=== PATIENT | female | born 1955 | race Caucasian/White ===

== ENCOUNTER 2018-06-29 17:47 | Observation (INO) ==
[2018-06-29] MEDS ORDERED: *HR* Labetalol 20 MG/4 ML SYRINGE IVP ONE (18:01)
[2018-06-29 18:10] LABS: Hemoglobin 13.6 g/dL (11.5-15.4); Mean Corpuscular HGB Conc 34.9 g/dL (31.6-35.5); Mean Corpuscular Hemoglobin 30.6 pg (28.0-33.3); Mean Corpuscular Volume 87.8 fL (83.0-100.0); Mean Platelet Volume 9.2 fL (9.4-12.4); Platelet Count 131 K/mcL (140-400); Red Blood Count 4.44 M/mcL (3.82-4.97); Red Cell Distribution Width 12.1 % (11.5-14.5)
[2018-06-29 18:17] LABS: Prothrombin Time 11.3 Seconds (9.4-12.1)
[2018-06-29 18:20] LABS: Activated Partial Thrombo Time 28.9 Seconds (26.0-36.0)
[2018-06-29 18:30] LABS: BUN/Creatinine Ratio 31 (6-26); Blood Urea Nitrogen 23 mg/dL (8-23); Calcium 10.2 mg/dL (8.6-10.3); Carbon Dioxide 27 mEq/L (23-29); Chloride 99 mEq/L (98-107); Glucose 143 mg/dL (70-105); Osmolality,Calculated 292 (280-300); Potassium 3.5 mEq/L (3.5-5.1); Sodium 138 mEq/L (136-145); Troponin I < 0.03 ng/mL (< 0.04); eGFR For Non-African Americans > 60 (> 60)
[2018-06-29] MEDS ORDERED: Aspirin 325 MG TABLET PO ONE (18:32)
[2018-06-29] MEDS ORDERED: Isovue-370 500 ML BOTTLE IVP ONE (18:33)
--- NOTE | 2018-06-29 19:14 | Emergency Department Note ---
Disposition Clinical Impression: Hypertensive urgency, Paresthesias, Left facial numbness Disposition: Admitted As Inpatient Condition: Good Referrals: Isrrael Peralta MD [Primary Care Provider] - Time of Disposition: 19:24 Neuro HPI - General Chief Complaint: ED Neuro Symptoms/Deficit Stated Complaint: L sided numbess Time Seen by Provider: 06/29/18 17:52 Source: family Limitations: no limitations Nursing Notes Reviewed: Yes Vital Signs Reviewed: Yes - History of Present Illness HPI Narrative: 63-year-old female presented to the emergency room for numbness. She states that on Saturday evening she started having palpitations and not feeling well. States her blood pressure has been elevated. This is out of the ordinary for her. Today around 4:30 or so she started developing pain in the back of her head and neck as well as left face arm and leg numbness and tingling sensation. She states she has never had this before. She denied any vision changes. She denies tongue problems. She denies any weakness on one side versus the other. She has no other complaints at this time other than she admitted to some intermittent palpitations. - Related Data Home Medications: Home Medications Medication Instructions Recorded Confirmed FLUoxetine HCl [PROzac] 20 mg PO HS 06/29/18 06/29/18 Famciclovir 250 mg PO TID 06/29/18 06/29/18 LORazepam [Lorazepam] 2 mg PO BID PRN 06/29/18 06/29/18 Metformin HCl [Glucophage Xr] 500 mg PO QPM 06/29/18 06/29/18 Rosuvastatin Calcium [Crestor] 5 mg PO SUTH 06/29/18 06/29/18 Allergies/Adverse Reactions: Allergies Allergy/AdvReac Type Severity Reaction Status Date / Time morphine Allergy Nausea Verified 03/26/16 10:08 Penicillins Allergy Rash Verified 03/26/16 10:08 ciprofloxacin [From Cipro] AdvReac Depression Verified 03/26/16 10:08 epinephrine AdvReac See Verified 03/26/16 10:08 Comments All systems ED: reviewed and negative except as stated. Constitutional: Reports: as per HPI ENT ED: Reports: as per HPI Cardiovascular: Denies: chest pain Respiratory: Denies: cough Gastrointestinal: Denies: abdominal pain Musculoskeletal: Reports: as per HPI Integumentary: Reports: as per HPI Neurological: Reports: headache, paresthesias Psychiatric: Reports: as per HPI Past Medical History - Past Medical History Medical history: Reports: diabetes, hypertension Psychiatric history: Reports: no psych history - Social History Smoking Status: Never smoker Smokeless Tobacco Status: No Alcohol use: Reports: none Drug use: Reports: none Physical Exam - General Limitations: no limitations General appearance: alert - Head Head exam: atraumatic, normocephalic - Eye Eye exam: Present: PERRL, EOMI - ENT ENT exam: normal exam - Chest Chest inspection: Present: normal inspection - Respiratory Respiratory exam: Present: normal lung sounds bilaterally - Cardiovascular Cardiovascular exam: Present: regular rate, normal rhythm, normal heart sounds - Abdominal Exam Abdominal exam: Present: soft, Non-Tender, normal bowel sounds - Extremities Exam Extremities exam: Present: normal inspection - Back Exam Back exam: Present: normal inspection - Neurological Exam Neurological exam: Present: alert, CN II-XII intact, other (No focal motor or sensory deficits at this time. She does complain of some numbness along the left side of the face and left arm and left leg.) - Psychiatric Psychiatric exam: Present: normal affect, normal mood - Skin Skin exam: Present: warm, dry, intact Course Vital Signs Temperature 97.7 F 06/29/18 17:54 Pulse Rate 100 06/29/18 17:54 Respiratory Rate 18 06/29/18 17:54 Blood Pressure 198/84 06/29/18 17:54 O2 Sat by Pulse Oximetry 100 06/29/18 17:54 Temperature 97.7 F 06/29/18 17:54 Pulse Rate 70 06/29/18 18:33 Respiratory Rate 18 06/29/18 18:33 Blood Pressure 151/77 06/29/18 18:33 O2 Sat by Pulse Oximetry 98 06/29/18 18:14 Oxygen Delivery Oxygen Delivery Room Air Neuro Symptoms/Deficit - MDM Narrative Medical decision making narrative: We did a telemetry stroke conference with the neurologist at [facility]. We will admit the patient here. We will do a CTA of the head and neck. Patient will be given aspirin. Blood pressure control. Patient did receive labetalol which brought her blood pressure down. The neurologist was okay with the patient staying here based on the negative head CT and the patient complaints. Her left arm and left leg numbness has improved. - Medical Records Medical records reviewed: Yes I reviewed the patient's medical records. - Lab Data Lab results reviewed: Yes I reviewed the patient's lab results. Result diagrams: 06/29/18 18:01 06/29/18 18:01 Lab Results 06/29/18 06/29/18 06/29/18 Range/Units 18:01 18:01 18:01 WBC 7.7 (4.3-11.1) K/mcL RBC 4.44 (3.82-4.97) M/mcL Hgb 13.6 (11.5-15.4) g/dL Hct 39.0 (35.3-44.9) % MCV 87.8 (83.0-100.0) fL MCH 30.6 (28.0-33.3) pg MCHC 34.9 (31.6-35.5) g/dL RDW 12.1 (11.5-14.5) % Plt Count 131 L (140-400) K/mcL MPV 9.2 L (9.4-12.4) fL PT 11.3 (9.4-12.1) Seconds INR 1.0 APTT 28.9 (26.0-36.0) Seconds Sodium 138 (136-145) mEq/L Potassium 3.5 (3.5-5.1) mEq/L Chloride 99 (98-107) mEq/L Carbon Dioxide 27 (23-29) mEq/L BUN 23 (8-23) mg/dL Creatinine 0.74 (0.60-1.20) mg/dL Est GFR ( Amer) > 60 (> 60) Est GFR (Non-Af Amer) > 60 (> 60) BUN/Creatinine Ratio 31 H (6-26) Glucose 143 H (70-105) mg/dL Calculated Osmolality 292 (280-300) Calcium 10.2 (8.6-10.3) mg/dL Troponin I < 0.03 (< 0.04) ng/mL - Radiology Data Radiology results reviewed: Yes I reviewed the patient's radiology results. - EKG Data EKG attestation: Yes I reviewed and interpreted this EKG. EKG results narrative: EKG showed a rate of 78. Normal sinus rhythm. Normal axis. ME interval 143. QRS 78. QTC 439. NIH Stroke Scale - Level of Consciousness LOC: Alert - LOC Questions LOC Questions: Answers both correctly - LOC Commands LOC Commands: Performs both correctly - Best Gaze Best Gaze: Normal - Visual Visual: No visual loss - Facial Palsy Facial Palsy: Normal - Motor Arms Motor Arm-Left: No drift for 10 seconds - Motor Legs Motor Leg-Left: No drift for 5 seconds - Limb Ataxia Limb Ataxia: Absent of affected limb too weak to perform exam - Sensory Sensory: Mild to moderate loss, "not as sharp" - Best Language Best Language: No aphasia - Dysarthria Dysarthria: Normal - Extinction and Inattention Extinction and Inattention: Normal TPA Checklist - LKW: 3-4.5 hrs Add. Warnings/Precautions Patient/family understanding: The patient/family members have been counseled and understood the risk, benefit, and alternatives of treatment. Critical Care Time Critical Care Time: Yes Total Critical Care Time: 45 Attestation: Critical care time of 45 minutes spent in medical management of hypertensive urgency and neuro deficits. As well as consultation with neurology from [facility].
[2018-06-29] MEDS ORDERED: Naloxone 0.4 MG/ML INJ IVP PRN (23:06)
[2018-06-29] MEDS ORDERED: D5% in Water 1,000 ML IVC PRN (23:12)
[2018-06-29] MEDS ORDERED: Dextrose Gel 15 GM/37.5 ML TUBE PO PRN ×2 (23:12)
[2018-06-29] MEDS ORDERED: *HR* Dextrose 50 % in Water (Syg) 50 ML SYRINGE IVP PRN (23:12)
[2018-06-30] MEDS: FLUoxetine 20 MG CAPSULE PO SCH ×2 (01:18→21:44)
[2018-06-30] MEDS: FAMCICLOVIR 250 MG PO SCH ×4 (01:18→21:44)
[2018-06-30] MEDS: *HR* LORazepam 1 MG TABLET PO PRN ×2 (01:33→21:52)
--- NOTE | 2018-06-30 03:03 | Internal Med History&Physical ---
Date of Encounter: 06/29/18 Time of Encounter: 22:30 Internal Medicine - H&P: HPI Chief complaint: Hypertensive urgency Admitted From: Emergency Dept Plans for Post Hospital Care: Home History of present illness: Ms. Wilson is a 63 year old female Patient presented to the emergency room with chief complaint of numbness. She says that on Saturday evening she began having palpitations and was not feeling well. She also is noted her blood pressure is been elevated. Over the weekend her blood pressure did not improve, and she does not take anything for blood pressure. She used to take blood pressure medicine but she stopped taking them about a year ago after going to an test grader who she says cured her hype rtension and diabetes. Prior to her arrival to the emergency room she also started developing pain in the back of her head and neck and then noted left arm and face numbness. She never had symptoms like this before, so she came to the emergency room for further evaluation. In the emergency room patient's vital signs showed blood pressure 198/84. Her pulse was 100 and temperature was 97.7. A stroke alert was called and conference with neurology at [facility] was performed. Her CBC showed a platelet count of 131, she has a history of thrombocytopenia. INR was 1.0 and BMP was within normal limits. Patient's initial troponin was undetectable. A head CT was performed that showed no acute intracranial abnormality. After discussion with [facility], they recommended a CTA of the head and neck. He was also CTA head showed no flow-limiting stenosis or branch occlusion detected within the head or neck. They agreed patient could be admitted to [facility]. She was also given a dose of labetalol and aspirin was ordered but not given. She was sent to the medical floor for further management. Upon my evaluation, patient was resting comfortably in the hospital bed in no acute distress. She denied chest pain, abdominal pain, nausea, vomiting, diarrhea and constipation. She confirm the history above. She describes her neck and back of the head pain is cramping in nature. Her symptoms presented while she was not doing anything strenuous. She does take multiple supplements and vitamins, and sees an test grader in [place]. She has a past medical history of diabetes, depression, anxiety, hyperlipidemia, genital herpes and thrombocytopenia. She also has obstructive sleep apnea and uses a CPAP machine. She states that her mother and father both had strokes in the past and her father also had a heart attack. She notes a history of undergoing cardiac catheterizations though those records are not available at this time. She has a necklace stating that she is a DNR/DNI. During nurse's initial questioning, she was found to have some suicidal ideation, though she does not have a plan. She follows with a psychiatrist and a psychologist. Past Med Surg Social Fam HX - Past Medical History Medical history: diabetes, hypertension Additional medical history: obstructive sleep apnea, high triglycerides Psychiatric history: anxiety, depression, panic disorder - Past Surgical History Surgical History: - Social History Smoking Status: Former smoker Smokeless Tobacco Status: No Alcohol use: none Drug use: none - Family History Father Adopted: [place]: Sotero Meneses Family Member Ethnicity: Non- Living Status: Age at : 77 Cause of : Lung cancer Hx Family Cardiac Disorders: Yes (heart attack, hyperlipidemia) Hx Family Cancer: Yes (lung cancer) Hx Family Musculoskeletal Disorders: Yes (degenerative disc disease) Hx Family Neurologic Disorders: Yes (stroke) Mother Adopted: [place]: Brittany Meneses Family Member Ethnicity: Non- Living Status: Age at : 82 Cause of : Pneumonia Hx Family Cardiac Disorders: Yes (materal grandmother angina; mother carotid artery blockage) Hx Family GI Disorders: Yes (uncle - non alcoholic cirrhosis) Hx Family Neurologic Disorders: Yes (stroke, uncle had a brain aneurysm) Internal Medicine - H&P: Meds FLUoxetine HCl [PROzac] 20 mg PO HS 06/29/18 [History] Famciclovir 250 mg PO TID 06/29/18 [History] LORazepam [Lorazepam] 2 mg PO BID PRN 06/29/18 [History] Metformin HCl [Glucophage Xr] 500 mg PO QPM 06/29/18 [History] Rosuvastatin Calcium [Crestor] 5 mg PO SUTH 06/29/18 [History] Allergy/AdvReac Type Severity Reaction Status Date / Time lamotrigine [From Lamictal] Allergy Rash Verified 06/29/18 23:50 morphine Allergy Nausea Verified 03/26/16 10:08 oxcarbazepine Allergy Seizure Verified 06/29/18 23:50 [From Trileptal] Penicillins Allergy Rash Verified 03/26/16 10:08 ciprofloxacin [From Cipro] AdvReac Depression Verified 03/26/16 10:08 epinephrine AdvReac See Verified 03/26/16 10:08 Comments All Systems PM: A 10-system review of systems was performed and is negative for pertinent findings except as documented above in the HPI. - Constitutional Vitals: Temp Pulse Resp BP Pulse Ox 98.3 F 66 16 165/74 96 06/30/18 01:07 06/30/18 01:07 06/30/18 01:07 06/30/18 01:07 06/29/18 22:12 General appearance: Present: cooperative, A&O X 3, pleasant, no acute distress, answers questions appropriately Exam: - - Head Head exam: Present: normal inspection - Eye Eye exam: Present: EOMI, normal appearance - Respiratory Respiratory exam: Present: CTAB. Absent: rales, respiratory distress, rhonchi, wheezes - Cardiovascular Cardiovascular exam: Present: RRR. Absent: diastolic murmur, systolic murmur - GI/Abdominal GI/Abdominal exam: Present: normal bowel sounds, soft. Absent: tenderness - Extremities Exam Extremities exam: Present: full ROM, warm, radial pulses palpable and symmetrical. Absent: calf tenderness, pedal edema, tenderness - Neurological Exam Neurological exam: Present: alert, oriented X3, strengths equal and symetr throughout. Absent: altered, CN II-XII intact, motor sensory deficit, no focal deficits (While), pronater drift, facial droop, speech deficit Additional comments: Strength equal and symmetrical bilaterally. Some numbness to the left side of the face compared to right - Skin Skin exam: Present: dry, normal color, warm Internal Med - H&P Results - Labs CBC & Chem 7: 06/29/18 18:01 06/29/18 18:01 Labs: Short CBC 06/29/18 Range/Units 18:01 WBC 7.7 (4.3-11.1) K/mcL Hgb 13.6 (11.5-15.4) g/dL Hct 39.0 (35.3-44.9) % Plt Count 131 L (140-400) K/mcL BMP 06/29/18 18:01 Sodium 138 Potassium 3.5 Chloride 99 Carbon Dioxide 27 BUN 23 Creatinine 0.74 Glucose 143 H Calcium 10.2 Cardiac Enzymes 06/29/18 Range/Units 18:01 Troponin I < 0.03 (< 0.04) ng/mL - Impressions ITS Impressions Head CT 06/29/18 17:59 IMPRESSION: No acute intracranial abnormality. Findings were discussed with Tyron Leon at 6:19 pm on 06/29/2018. D/ / Dank Jean MD / Dank Jean MD Interpreting Provider: Dank Jean MD Head CTA 06/29/18 18:33 IMPRESSION: No flow limiting stenosis or branch occlusion detected within the head or neck. D/ / Stephen Cheng MD / Stephen Cheng MD Interpreting Provider: Stephen Cheng MD Neck CTA 06/29/18 18:33 IMPRESSION: No flow limiting stenosis or branch occlusion detected within the head or neck. D/ / Stephen Cheng MD / Stephen Cheng MD Interpreting Provider: Stephen Cheng MD - Assessment and Plan (1) Hypertensive urgency Current Visit: Yes Status: Acute Assessment and plan: Improved, in the emergency room she received 1 dose of 10 mg IV labetalol. Her blood pressure could be related to the numbness and tingling that she is experiencing in her hand and face. Her numbness has improved in her hand but she still has some numbness on the left side of her face. CT head was negative. Blood pressure at time of evaluation demonstrated a systolic of 160s. Continue to monitor we will hold off on additional blood pressure medicines, allowing for permissive hypertension, due to the possibility of TIA. (2) Left facial numbness Current Visit: Yes Status: Acute Assessment and plan: Could be secondary to hypertension, or TIA. Initial head CT negative for acute intracranial abnormality. CT angiogram of head and neck also negative. No facial droop on exam, only sensation changes. MRI in the morning Echocardiogram in the morning Carotid Dopplers in the morning Continue cardiac monitoring Patient passed dysphasia screen Consider neurology consult Consider physical therapy and occupational therapy consult if patient's neuro status declines. (3) Paresthesias Current Visit: Yes Status: Acute Assessment and plan: Improved, and as per patient essentially resolved. Her only remaining symptoms are left-sided facial numbness. Management as above (4) Suicidal ideation Current Visit: Yes Status: Acute Assessment and plan: Patient stated to the nurse that she feels hopeless ever since her 5 years ago. She has frequent mood swings and has thoughts of killing herself as well as wishing she was . She says that she would not carry out these thoughts due to her lutheran beliefs. She currently sees psychiatry and psychologist. Patient sitter Consider psychiatry consult (5) Anxiety Current Visit: Yes Status: Acute Assessment and plan: Continue home meds (6) Genital herpes Current Visit: Yes Status: Acute Assessment and plan: Continue home meds Qualifiers: Herpes simplex infection site: unspecified Qualified Code(s): A60.00 - Herpesviral infection of urogenital system, unspecified (7) Thrombocytopenia Current Visit: Yes Status: Acute Assessment and plan: Continue to monitor. No active bleeding. Appears to be chronic, last platelet level was 126 two years ago. SCDs for DVT prophylaxis (8) Diabetes Current Visit: Yes Status: Acute Assessment and plan: Patient is not an insulin dependent diabetic Monitor sugars ACHS Diabetic/cardiac diet Low dose insulin sliding scale as needed Hold home meds. Qualifiers: Diabetes mellitus type: type 2 Diabetes mellitus prison insulin use: without winder operator use Diabetes mellitus complication status: without complica tion Qualified Code(s): E11.9 - Type 2 diabetes mellitus without complications (9) Obstructive sleep apnea Current Visit: Yes Status: Acute Assessment and plan: Continue CPAP at night (10) DVT prophylaxis Current Visit: Yes Status: Acute Assessment and plan: SCDs secondary to thrombocytopenia - Time Spent With Patient Total time spent is greater than 50% in coordination of care (as documented) at patient's floor/unit and/or counseling patient: Greater than 35 minutes
[2018-06-30 05:34] LABS: Hematocrit 36.6 % (35.3-44.9); Hemoglobin 12.5 g/dL (11.5-15.4); Mean Corpuscular HGB Conc 34.2 g/dL (31.6-35.5); Mean Corpuscular Hemoglobin 30.5 pg (28.0-33.3); Mean Corpuscular Volume 89.3 fL (83.0-100.0); Mean Platelet Volume 9.7 fL (9.4-12.4); Platelet Count 108 K/mcL (140-400); Red Cell Distribution Width 12.2 % (11.5-14.5)
[2018-06-30 05:55] LABS: BUN/Creatinine Ratio 29 (6-26); Blood Urea Nitrogen 20 mg/dL (8-23); Calcium 9.7 mg/dL (8.6-10.3); Carbon Dioxide 27 mEq/L (23-29); Chloride 102 mEq/L (98-107); Glucose 138 mg/dL (70-105); Osmolality,Calculated 289 (280-300); Sodium 137 mEq/L (136-145); eGFR For Non-African Americans > 60 (> 60)
[2018-06-30] MEDS: Insulin LISPRO 300 UNITS/3 ML VIAL SQ SCH ×3 (08:44→16:37)
--- NOTE | 2018-06-30 10:04 | Neurology - Consult Note ---
<Goldy Gomez J - Last Filed: 06/30/18 15:20> Date of Encounter: 06/30/18 Time of Encounter: 09:57 Assessment and Plan (1) Hypertensive urgency Current Visit: Yes Status: Acute Treatment per primary team (2) Paresthesias Current Visit: Yes Status: Acute Presents with hypertensive urgency and left-sided paresthesias located to the left perioral region, left face and left arm. No prior history of TIA or CVA. No history of CAD. Risk factors include HTN, HLD, DM. Admitted for TIA versus CVA rule out. Clinically, the patient is neurologically intact with no focal or lateralizing deficits. She is complaining of a left-sided headache which she has had intermittently since this Saturday. She denies any prior history of headaches or migraines. HTN urgency on admission; likely contributing to h/a and may have been contributing to neuro sx. In regards to the paresthesias, it is unclear at this time whether or these are caused by an acute neurovascular event. Therefore we will continue to r/o CVA. By the time of my assessment her sx have abated. I discussed with patient the importance of medication compliance, lifestyle modifications, risk factor modifications and the benefits to weight loss. I further discussed today's plan of care as mentioned below. Also, it should be noted the patient presented with suicidal ideation and has a history of anxiety and depression. During my exam the patient appears to be very anxious and admits to multiple recent life stressors and a recent exacerbation of anxiety. PLAN: 81 mg aspirin daily Continue statin medication MRI brain pending completion Carotid duplex pending completion Echocardiogram pending completion Continue with frequent neurologic assessments per stroke protocol Continue with NIHSS per protocol Continue to monitor on telemetry Psych seeing in consultation for SI; recommendations appreciated Continuous 1:1 sitter PRN Ibuprofen for h/a Recommend anti-HTN management; again, discussed medication compliance and HTN control Tight glycemic control History of Present Illness Chief complaint: left facial and arm parasthesias HPI: Ms. Wilson is a 63 year old female with a PMH of anxiety and depression, genital herpes, HLD, HTN, and DM who presents to [facility] with a concern of left facial and left arm numbness and tingling and hypertensive urgency with SBP in the 190s. The patient reports that on Saturday she began to notice blood pressure elevation and a posterior headache. These symptoms persisted from Saturday to yesterday evening when she began to experience left sided facial paresthesias as well as left arm paresthesias and some perioral numbness and tingling. She denies any aggravating or alleviating factors, denies any visual changes, speech difficulty, dysarthria, dysphagia, unilateral weakness, shor tness of breath or chest pain. She admits to tachycardia, palpitations and the above-mentioned paresthesias. Further, she mentions a history of anxiety and notes that she has many life stressors which have been worsened recently and notes that she is more anxious than normal. CT of the head in the ED was negative for an acute intracranial abnormality. The [facility] telemetry stroke center did not recommend TPA but recommended CTA of the head and neck which does not appear to reveal any branch occlusion or flow-limiting stenosis in the head or neck. Currently, she is denying any paresthesias. Her main complaint at this time is a left-sided headache. Per review of the patient's vital signs it appears that her blood pressure has improved. The CBC and chemistry both appear within range. Of note in the history of anxiety and depression and the fact that she does appear anxious at this time the patient also mentions some suicidal ideation on admission. She does acknowledge this this morning. Neurology will continue to follow to workup acute CVA; patient should also have a psych eval while inpatient and a one-to-one sitter present until further evaluation has been completed. Past Med Surg Social Fam HX - Past Medical History Medical history: diabetes, hypertension Additional medical history: obstructive sleep apnea, high triglycerides Psychiatric history: anxiety, depression, panic disorder - Past Surgical History Surgical History: - Social History Smoking Status: Former smoker Smokeless Tobacco Status: No Alcohol use: none Drug use: none - Family History Father Adopted: [place]: Sotero Meneses Family Member Ethnicity: Non- Living Status: Age at : 77 Cause of : Lung cancer Hx Family Cardiac Disorders: Yes (heart attack, hyperlipidemia) Hx Family Cancer: Yes (lung cancer) Hx Family Musculoskeletal Disorders: Yes (degenerative disc disease) Hx Family Neurologic Disorders: Yes (stroke) Mother Adopted: [place]: Brittany Meneses Family Member Ethnicity: Non- Living Status: Age at : 82 Cause of : Pneumonia Hx Family Cardiac Disorders: Yes (materal grandmother angina; mother carotid artery blockage) Hx Family GI Disorders: Yes (uncle - non alcoholic cirrhosis) Hx Family Neurologic Disorders: Yes (stroke, uncle had a brain aneurysm) Medications and Allergies FLUoxetine HCl [PROzac] 20 mg PO HS 06/29/18 [History] Metformin HCl [Glucophage Xr] 500 mg PO QPM 06/29/18 [History] RX: Famciclovir 250 mg PO TID 06/29/18 [History] RX: LORazepam [Lorazepam] 2 mg PO BID PRN 06/29/18 [History] Rosuvastatin Calcium [Crestor] 5 mg PO SUTH 06/29/18 [History] Allergy/AdvReac Type Severity Reaction Status Date / Time lamotrigine [From Lamictal] Allergy Rash Verified 06/29/18 23:50 morphine Allergy Nausea Verified 03/26/16 10:08 oxcarbazepine Allergy Seizure Verified 06/29/18 23:50 [From Trileptal] Penicillins Allergy Rash Verified 03/26/16 10:08 ciprofloxacin [From Cipro] AdvReac Depression Verified 03/26/16 10:08 epinephrine AdvReac See Verified 03/26/16 10:08 Comments All Systems: The remainder of the systems were reviewed and are negative Review of Systems: REVIEW OF SYSTEMS GENERAL: Negative for any nausea, vomiting, fevers, chills, or weight loss, fatigue, NEUROLOGIC: Negative for any blurry vision, blind spots, double vision, facial asymmetry, dysphagia, dysarthria, hemiparesis, vertigo, ataxia, unilateral weakness speech or language dysfunction< balance changes Positive; left perioral paresthesias, left facial and left arm paresthesias PSYCH: Positive for anxiety and depression; admits to recent life stressors and worsening anxiety. Also admitting to suicidal ideation. HEENT: Negative for any head trauma, neck trauma, neck stiffness, photophobia, phonophobia CARDIAC: Negative for any chest pain, dyspnea on exertion, peripheral edema. A dmits to palpitations, tachycardia and HTN. PULMONARY: Negative for any shortness of breath GASTROINTESTINAL: Negative for any abdominal pain, nausea, vomiting. Admits to chronic intermittent diarrhea secondary to metformin use. GENITOURINARY: Negative for any dysuria, incontinence. ENDOCRINE: Thyroid trouble, heat/cold intolerance, excessive sweating, thirst, hunger MUSCULOSKELETAL: Negative loss of strength Physical Examination - Vital Signs Vital Signs: Initial Vital Signs Temp Pulse Resp BP Pulse Ox 97.7 F 100 18 198/84 100 06/29/18 17:54 06/29/18 17:54 06/29/18 17:54 06/29/18 17:54 06/29/18 17:54 - Exam Exam: Examination: General Examination: *CONSTITUTIONAL: Alert and oriented x3, no acute distress *GENERAL APPEARANCE OF PATIENT obese elderly female, overall appears healthy and well groomed *EYES: pupils equal, round, reactive to light and accommodation, conjunctiva clear *CARDIOVASCULAR RRR, S1, S2, +1 murmur at apex and left sternal border, no rubs, or gallops, no peripheral edema, distal temperature normal, 2+ radial and dorsalis pedis pulses. Defer to vital signs Musculoskeletal: *GAIT AND STATION normal, with normal Romberg testing, no abnormalities such as broad base gait or spasticity, gait was smooth, smooth transition with pivot *ASSESSMENT OF MUSCLE STRENGTH IN THE UPPER AND LOWER EXTREMITIES bilateral deltoid, bicep, tricep, principal programmer strength, hip flexors ,anterior tibialis, dorsoflexion of the foot 5/5 *MUSCLE TONE IN THE UPPER AND LOWER EXTREMITIES normal. No abnormal movements, fasciculations or atrophy identified. Neurological: *ORIENTATION to person, situation, time and place *RECURRENT AND REMOTE MEMORY intact *ATTENTION AND CONCENTRATION are normal *LANGUAGE FUNCTION no significant aphasia or dysarthia was noted. *FUND OF KNOWLEDGE aware of current events, past history, vocabulary *MENTAL attention span and concentration normal. *CN II optic fundi were normal, no papilledema noted. *CN III,IV, PERRLA extraocular eye movements were full, no nystagmus and no ptosis noted. *CN V shows normal sensation and jaw opens symmetrically. *CN VII shows normal facial movement symmetrically, upper and lower bilaterally. *CN VIII shows no significant hearing loss on exam *CN IX,,X palate elevated symmetrically *CN XI normal strength in the sternocleidomastoid muscles, symmetrical shoulder shrugging. *CN XII tongue protruded in the midline, with normal strength and movement. *SENSORY EXAMINATION light touch intact *REFLEXES: deep tendon reflexes were normal and symmetrical , grade 3/4 diffusely, no pathological reflexes were noted. *CEREBELLAR TESTING normal finger to nose, heel/knee/johnson *PAIN LEVEL 0 *PSYCHIATRIC: Anxious appearing Results - Laboratory Findings CBC and BMP: 06/30/18 05:14 06/30/18 05:14 Abnormal lab findings: Abnormal lab results Plt Count 108 K/mcL (140-400) L 06/30/18 05:14 BUN/Creatinine Ratio 29 (6-26) H 06/30/18 05:14 Glucose 138 mg/dL (70-105) H 06/30/18 05:14 POC Glucose 116 mg/dL (70-99) H 06/29/18 22:18 - Diagnostic Findings EKG: report reviewed, image reviewed (Normal sinus rhythm with HR of 78) Additional findings: CT/CT angio neck IMPRESSION: No flow limiting stenosis or branch occlusion detected within the head or neck. CT/CT stroke alert head wo con IMPRESSION: No acute intracranial abnormality. Consult Discharge Plan - Plan Referrals: Isrrael Peralta MD [Primary Care Provider] - <Miguel Enrique - Last Filed: 06/30/18 15:34> Date of Encounter: 06/30/18 Assessment and Plan (1) Hypertensive urgency Current Visit: Yes Status: Acute (2) Paresthesias Current Visit: Yes Status: Acute I have personally performed a [id number] assessment of the patient and have reviewed the PA/BUSINESS SOLUTIONS DIRECTOR note. My impressions are as follows: I did review the chart and its entirety I did review the MRI scan of the brain which was completely normal. CTA scan of the head and neck was unrevealing. Her blood pressure has now normalized. The full interpretation of the carotid Doppler study and the echocardiogram are yet pending. I agree that the presentation is likely due to the different factors including anxiety, perhaps TIA as a result of her significantly elevated blood pressure. I did stress the importance of medical compliance as well as following up with her primary care provider for ongoing management of her stroke risk factors. I agree with the recommendations as stated above. We will reassess her tomorrow. History of Present Illness HPI: I have personally performed a [id number] assessment of the patient. The chart was reviewed, I did review the results of the MRI scan of the brain as well as the CTA of the head and neck. The case was discussed with the COTTON DISPATCHER. I agree with his documentation as stated above. Patient is currently undergoing carotid Doppler study. She is alert and oriented and under no acute distress at this time. Paresthesias of the left mouth and face as well as the left upper extremity have completely resolved. All Systems: The remainder of the systems were reviewed and are negative Review of Systems: The balance of the systems review was all negative. Physical Examination - Vital Signs Vital Signs: Initial Vital Signs Temp Pulse Resp BP Pulse Ox 97.7 F 100 18 198/84 100 06/29/18 17:54 06/29/18 17:54 06/29/18 17:54 06/29/18 17:54 06/29/18 17:54 - Exam Exam: I did not assess gait at the time of my assessment is a patient was lying on the bed for testing. Otherwise I completely agree with the neurologic examination as documented above. Results - Laboratory Findings CBC and BMP: 06/30/18 05:14 06/30/18 05:14 Abnormal lab findings: Abnormal lab results Plt Count 108 K/mcL (140-400) L 06/30/18 05:14 BUN/Creatinine Ratio 29 (6-26) H 06/30/18 05:14 Glucose 138 mg/dL (70-105) H 06/30/18 05:14 POC Glucose 116 mg/dL (70-99) H 06/29/18 22:18
[2018-06-30] MEDS ORDERED: Ibuprofen 400 MG TABLET PO PRN (10:18)
[2018-06-30] MEDS: Aspirin 81 MG TAB.CHEW PO SCH (12:04)
--- NOTE | 2018-06-30 12:36 | Internal Med Progress Note ---
Hospitalist Progress Note - Encounter Date of Encounter: 06/30/18 Time of Encounter: 10:46 - Subjective Interval History: Pt seen and examined with sitter and family present at bedside. Pt states she feels better compared to previous day. Reports complete resolution of her left sided numbness, but does report of frontal headache. Denies any dizziness, or lightheadedness at this time. Pt continues to express feelings of hopelessness and depression, reports of having suicidal ideation but no intent or plan. Ten point ROS negative except as listed above - Exam Vitals: Temp Pulse Resp BP Pulse Ox 98.5 F 65 16 115/48 100 06/30/18 11:25 06/30/18 11:25 06/30/18 11:25 06/30/18 11:25 06/30/18 11:25 Exam: General: No acute distress, AAO x 3, obese HEENT: EOMI, NC/AT, no scleral icterus Respiratory: Clear to auscultate bilaterally, no wheezing, no rales Cardiovascular: Regular, Rate, Rhythm, No murmurs GI: Soft, Non tender, non distended, normal bowel sounds Ext: No edema, no tenderness, positive pulses Neuro: AAO x 3, no focal deficits - Summary of Assessment and Plan Summary of Assessment and Plan: Assessment/Plan: (1) Hypertensive urgency Current Visit: Yes Status: Acute Assessment and plan: Resolved extensive medication compliance counseling provided BP within acceptable range at this time will continue to closely monitor we will hold off on additional blood pressure medicines, allowing for permissive hypertension, due to the possibility of TIA. (2) Left facial numbness Current Visit: Yes Status: Acute Assessment and plan: Could be secondary to hypertension, or TIA. Initial head CT negative for acute intracranial abnormality. CT angiogram of head and neck also negative. Initial presentation findings resolved at this time Neurology input appreciated MRI, 2D echo, carotid doppler pending will obtain PT/OT evaluation (3) Paresthesias Current Visit: Yes Status: Acute Assessment and plan: resolved at this time (4) Suicidal ideation Current Visit: Yes Status: Acute Assessment and plan: Will continue bedside sitter at this time psychiatry evaluation has been requested (5) Anxiety Current Visit: Yes Status: Acute Assessment and plan: Continue home meds (6) Genital herpes Current Visit: Yes Status: Acute Assessment and plan: Continue home meds Qualifiers: Herpes simplex infection site: unspecified Qualified Code(s): A60.00 - Herpesviral infection of urogenital system, unspecified (7) Thrombocytopenia Current Visit: Yes Status: chronic Assessment and plan: Continue to monitor. No active bleeding. SCDs for DVT prophylaxis (8) Diabetes Current Visit: Yes Status: Acute Assessment and plan: Patient is not an insulin dependent diabetic sliding scale insulin algorithm as needed monitor fingerstick and blood glucose ADA diet Qualifiers: Diabetes mellitus type: type 2 Diabetes mellitus aba therapist insulin use: without care home use Diabetes mellitus complication status: without complication Qualified Code(s): E11.9 - Type 2 diabetes mellitus without complications (9) Obstructive sleep apnea Current Visit: Yes Status: Acute Assessment and plan: Continue CPAP at night (10) DVT prophylaxis Current Visit: Yes Status: Acute Assessment and plan: SCDs secondary to thrombocytopenia (11) Headache will initiate Fioricet prn as pt reports of persistent headache despite taking tylenol - Time Spent with Patient Total time spent is greater than 50% in coordination of care (as documented) at patient's floor/unit and/or counseling patient: Plan of Care Discussed with: patient (patient/RN/Family) Internal Medicine: Result - Labs CBC & Chem 7: 06/30/18 05:14 06/30/18 05:14 Labs: Short CBC 06/29/18 06/30/18 Range/Units 18:01 05:14 WBC 7.7 6.3 (4.3-11.1) K/mcL Hgb 13.6 12.5 (11.5-15.4) g/dL Hct 39.0 36.6 (35.3-44.9) % Plt Count 131 L 108 L (140-400) K/mcL BMP 06/29/18 06/30/18 18:01 05:14 Sodium 138 137 Potassium 3.5 4.0 Chloride 99 102 Carbon Dioxide 27 27 BUN 23 20 Creatinine 0.74 0.68 Glucose 143 H 138 H Calcium 10.2 9.7 Cardiac Enzymes 06/29/18 Range/Units 18:01 Troponin I < 0.03 (< 0.04) ng/mL - ABG Interpretation ABG results: PT/INR, D-dimer PT 11.3 Seconds (9.4-12.1) 06/29/18 18:01 - Impressions Impressions Head CT 06/29/18 17:59 IMPRESSION: No acute intracranial abnormality. Findings were discussed with Tyron Leon at 6:19 pm on 06/29/2018. D/ / Dank Jean MD / Dank Jean MD Interpreting Provider: Dank Jean MD Head CTA 06/29/18 18:33 IMPRESSION: No flow limiting stenosis or branch occlusion detected within the head or neck. D/ / Stephen Cheng MD / Stephen Cheng MD Interpreting Provider: Stephen Cheng MD Neck CTA 06/29/18 18:33 IMPRESSION: No flow limiting stenosis or branch occlusion detected within the head or neck. D/ / Stephen Cheng MD / Stephen Cheng MD Interpreting Provider: Stephen Cheng MD Consult Discharge Plan - Plan Referrals: Isrrael Peralta MD [Primary Care Provider] -
--- NOTE | 2018-06-30 15:16 | Consult Note ---
Date of Encounter: 06/30/18 Time of Encounter: 13:00 Assessment & Recommendation (1) Other bipolar disorder Current visit: Yes Status: Acute Assessment & Recommendation: -Although the patient is having suicidal ideation, she denies plan or intent and has strong protective factors. As such, she is not seen to be at high risk for suicide at this time. -With a current history, it appears that there may be a bipolar element to the patient's illness. Patient has been started on medications for bipolar disorder in the past, though side effects caused medications to be discontinued. As such, a lower potency and safer medication is desired. As such, recommend starting ziprasidone 20 mg by mouth daily daily at bedtime with food. Risks, benefits, side effects, and alternatives to this medication were discussed with the patient, including but not limited to hypertension. -Recommend continuing fluoxetine 20 mg by mouth daily at bedtime for mood -Recommend continuing lorazepam 2 mg by mouth twice a day when necessary for anxiety -Patient reports that she has psychiatric and counseling services outpatient already -Recommend grief counseling patient is acceptable to it -Recommend discontinuing one-to-one sitter -Will continue to follow remotely throughout visit. Please let us know if you have any additional questions. History of Present Illness Patient: new to practice Requesting Physician: German Billingsley MD Reason for consult: Suicidal ideation History of present illness: Ms. Wilson is a 63 year old female with a past psychiatric history of depression, anxiety, possible bipolar disorder, and possible borderline personality disorder who was admitted on 06/29/2018 for left-sided numbness in who was consult to psychiatry today for suicidal ideation. Patient was admitted due to pain in the back of her head as well as left face, arm, and leg numbness. CT of the head and CTA of the head and neck were all negative. During her admission, she did report suicidal ideation but without plan. There was concern for her safety; as such, psychiatry was consulted. Patient reports that she is "not been too good." She reports increased depression and "a good bit" of anxiety. She states that she has had depression and anxiety since she was a child. She reports exacerbating factor of her being for 5 years. She reports that she is now "hopeless" and she now has a realization that although she had for the future are now gone with her 's . She states that she cannot see a life with new hopes. She denies plan or intent as how to harm herself, stating that it is not serious about ending her suicidal ideation. She reports protective factors of her sister and her son. She denies having access to a working farm, stating that she does have an antique gun but that it does not work. She reports a past history of hypomanic episodes. She states that her last hypomanic episode was in April of this year for 6 weeks. She reports that she was "up and working every day," cleaning her house and basement. She reports that during this time, she was sleeping from 9 PM to 7 AM. However, she states that she usually gets 14 hours of sleep a day during her depressed ages. Her sister, who is in the room, states that she also gets "mean and critical" during these times of hypomania. Patient reports that she will have hypomanic episodes about 4 times a year. In addition, she reports that she has "rapid" cycles in between, stating that she will be hypomanic for 1-2 days at a time. She reports past psychiatric diagnoses of PTSD, obsessive-compulsive disorder, depression, anxiety, possible bipolar disorder, and possible borderline personality disord er. She reports that she was in dialectical behavioral therapy for 4 years, which she responded well to. She reports "broken" sleep currently with "terrible dreams." She denies issues of appetite. She denies side effects to medications. However, she reports a significant history of side effects to medications and is very cautious to start a new medication. She denies current SI, HI, AH, and VH. CC: German Billingsley MD Past Med Surg Social Fam HX - Past Medical History Medical history: diabetes, hypertension - Past Psychiatric History Psychiatric history: Reports: anxiety, bipolar, depression, PTSD, other (Borderline personality disorder) Family psychiatric history: Unknown Family History of Suicide: Unknown - Past Surgical History Surgical History: - Social History Smoking Status: Former smoker Smokeless Tobacco Status: No Alcohol use: none Drug use: none Occupational status: other Current living situation: Other - Family History Father Adopted: [place]: Sotero Meneses Family Member Ethnicity: Non- Living Status: Age at : 77 Cause of : Lung cancer Hx Family Cardiac Disorders: Yes (heart attack, hyperlipidemia) Hx Family Cancer: Yes (lung cancer) Hx Family Musculoskeletal Disorders: Yes (degenerative disc disease) Hx Family Neurologic Disorders: Yes (stroke) Mother Adopted: [place]: Brittany Meneses Family Member Ethnicity: Non- Living Status: Age at : 82 Cause of : Pneumonia Hx Family Cardiac Disorders: Yes (materal grandmother angina; mother carotid artery blockage) Hx Family GI Disorders: Yes (uncle - non alcoholic cirrhosis) Hx Family Neurologic Disorders: Yes (stroke, uncle had a brain aneurysm) Medications & Allergies FLUoxetine HCl [PROzac] 20 mg PO HS 06/29/18 [History] Famciclovir 250 mg PO TID 06/29/18 [History] LORazepam [Lorazepam] 2 mg PO BID PRN 06/29/18 [History] Metformin HCl [Glucophage Xr] 500 mg PO QPM 06/29/18 [History] Rosuvastatin Calcium [Crestor] 5 mg PO SUTH 06/29/18 [History] Allergy/AdvReac Type Severity Reaction Status Date / Time lamotrigine [From Lamictal] Allergy Rash Verified 06/29/18 23:50 morphine Allergy Nausea Verified 03/26/16 10:08 oxcarbazepine Allergy Seizure Verified 06/29/18 23:50 [From Trileptal] Penicillins Allergy Rash Verified 03/26/16 10:08 ciprofloxacin [From Cipro] AdvReac Depression Verified 03/26/16 10:08 epinephrine AdvReac See Verified 03/26/16 10:08 Comments Review of Systems Neurological: Reports: numbness (Left-sided, now resolved). Denies: confusion Psychiatric: Reports: depression, anxiety, abnormal sleep pattern, anhedonia, hopelessness. Denies: suicidal ideation, change in appetite, homicidal ideation, auditory hallucinations, visual hallucinations Psychiatry Exam - Constitutional Vitals: Temp Pulse Resp BP Pulse Ox 98.5 F 65 16 115/48 100 06/30/18 11:25 06/30/18 11:25 06/30/18 11:25 06/30/18 11:25 06/30/18 11:25 General appearance: age & developmentally appropriate, well-groomed, well- nourished, obese - Musculoskeletal Gait: other (Not assessed) Station: relaxed Strength & Tone: normal for patient (Grossly) - Psychiatric Patient Orientation: Yes Person, Yes Time, Yes Place, Yes Circumstance Level of alertness: Alert, Follows commands Behavior: calm, cooperative Psychomotor activity: Normal Eye Contact: Maintains Eye Contact Mood Description: Depressed Patient description of mood: "Not been too good" Affect description: congruent with mood, full range Speech Volume: Normal Speech pattern: normal rate, normal rhythm, normal tone, fluent, spontaneous, appropriate, clear, coherent Language & Vocabulary: consistent with education Thought Process: Logical, Linear, Goal Oriented Thought Content: No Suicidal ideation, No Homicidal ideation, No Overt delusions Perceptual Disturbances: No Reacting to internal stimuli, No Auditory hallucinations, No Visual hallucinations Attention Span Ability: Capable of Focused Attention Memory Description: Grossly Intact Patient Reliability: Reliable Historian Fund of knowledge: Yes abstraction ability, Yes aware of current events Intelligence Estimate: Average Judgment: Limited Insight: Partial Results - Drug Levels and Toxicology Drug Levels and Toxicology: None new this a.m. - Labs Labs: Laboratory Last Values WBC 6.3 K/mcL (4.3-11.1) 06/30/18 05:14 RBC 4.10 M/mcL (3.82-4.97) 06/30/18 05:14 Hgb 12.5 g/dL (11.5-15.4) 06/30/18 05:14 Hct 36.6 % (35.3-44.9) 06/30/18 05:14 MCV 89.3 fL (83.0-100.0) 06/30/18 05:14 MCH 30.5 pg (28.0-33.3) 06/30/18 05:14 MCHC 34.2 g/dL (31.6-35.5) 06/30/18 05:14 RDW 12.2 % (11.5-14.5) 06/30/18 05:14 Plt Count 108 K/mcL (140-400) L 06/30/18 05:14 MPV 9.7 fL (9.4-12.4) 06/30/18 05:14 PT 11.3 Seconds (9.4-12.1) 06/29/18 18:01 INR 1.0 06/29/18 18:01 APTT 28.9 Seconds (26.0-36.0) 06/29/18 18:01 Sodium 137 mEq/L (136-145) 06/30/18 05:14 Potassium 4.0 mEq/L (3.5-5.1) 06/30/18 05:14 Chloride 102 mEq/L (98-107) 06/30/18 05:14 Carbon Dioxide 27 mEq/L (23-29) 06/30/18 05:14 BUN 20 mg/dL (8-23) 06/30/18 05:14 Creatinine 0.68 mg/dL (0.60-1.20) 06/30/18 05:14 Est GFR ( Amer) > 60 (> 60) 06/30/18 05:14 Est GFR (Non-Af Amer) > 60 (> 60) 06/30/18 05:14 BUN/Creatinine Ratio 29 (6-26) H 06/30/18 05:14 Glucose 138 mg/dL (70-105) H 06/30/18 05:14 POC Glucose 116 mg/dL (70-99) H 06/29/18 22:18 Calculated Osmolality 289 (280-300) 06/30/18 05:14 Calcium 9.7 mg/dL (8.6-10.3) 06/30/18 05:14 Troponin I < 0.03 ng/mL (< 0.04) 06/29/18 18:01 Vitamin B12 449 pg/mL (250-1100) 06/30/18 11:35 - Impressions Impressions Head CT 06/29/18 17:59 IMPRESSION: No acute intracranial abnormality. Findings were discussed with Tyron Leon at 6:19 pm on 06/29/2018. D/ / Dank Jean MD / Dank Jean MD Interpreting Provider: Dank Jean MD Head CTA 06/29/18 18:33 IMPRESSION: No flow limiting stenosis or branch occlusion detected within the head or neck. D/ / Stephen Cheng MD / Stephen Cheng MD Interpreting Provider: Stephen Cheng MD Neck CTA 06/29/18 18:33 IMPRESSION: No flow limiting stenosis or branch occlusion detected within the head or neck. D/ / Stephen Cheng MD / Stephen Cheng MD Interpreting Provider: Stephen Cheng MD Brain MRI 06/30/18 23:10 IMPRESSION: 1. No acute intracranial abnormality. Specifically, no acute infarction. 2. Diffuse parenchymal volume loss. D/ / Josias Lepe MD / Josias Lepe MD Interpreting Provider: Josias Lepe MD Consult Discharge Plan - Plan Referrals: Isrrael Peralta MD [Primary Care Provider] - - Attending Attestation I examined this patient and my medical decision-making was reviewed with the Resident Physician. I agree with the documented findings, disposition and treatment plan as described except to the extent set forth below. Client admits to suicidal ideation without intent or plan. Denies she is at actual risk for self harm. Sister present and agrees client would never hurt herself and sister denies having any safety concerns. Client does not meet inpatient criteria at this time but should continue to follow up as an outpatient. Currently takes Prozac for depression. Client reports being at higher doses of Prozac in the past but did not tolerate side effects. Client and sister both say she is sensitive to medications. Has experienced a rash with Lamictal, hyponatremia and seizures with Trileptal, pancreatitis with Depakote and toxicity with [employer]. Client is fearful of starting new meds due to her past negative experiences. Client states her outpatient provider wants her to try Latuda but she has declined due to the risk of elevating her blood sugar when she already has diabetes. Discussed Geodon as it is in the same drug class but tends to have less of an impact on glucose levels. Discussed risks/side effects including the need to take it with food in order to be effective. Client would like to try it. It is not a primary antidepressant but it has the ability to impact mood and anxiety levels. Can start it at 20mg hs with food. Call if any questions.
[2018-06-30] MEDS ORDERED: Insulin LISPRO 300 UNITS/3 ML VIAL SQ SCH (21:00)
[2018-06-30] MEDS: Acetaminophen/Butalbital/CaffeineTABLET PO PRN (21:48)
[2018-07-01 01:42] LABS: Basophils % 0.3 %; Eosinophils # 0.2 K/mcL (0.0-0.6); Eosinophils % 2.8 %; Hematocrit 37.3 % (35.3-44.9); Hemoglobin 12.7 g/dL (11.5-15.4); Immature Granulocytes % 0.2 % (0-4); Lymphocytes # 3.3 K/mcL (0.6-4.6); Lymphocytes % 50.9 %; Mean Corpuscular Hemoglobin 30.5 pg (28.0-33.3); Mean Corpuscular Volume 89.7 fL (83.0-100.0); Mean Platelet Volume 9.8 fL (9.4-12.4); Monocytes # 0.4 K/mcL (0.0-1.3); Monocytes % 6.9 %; Neutrophils # 2.5 K/mcL (1.6-8.9); Platelet Count 105 K/mcL (140-400); Red Blood Count 4.16 M/mcL (3.82-4.97); Red Cell Distribution Width 12.2 % (11.5-14.5); Segmented Neutrophils % 38.9 %
[2018-07-01 02:02] LABS: BUN/Creatinine Ratio 29 (6-26); Blood Urea Nitrogen 21 mg/dL (8-23); Calcium 9.6 mg/dL (8.6-10.3); Carbon Dioxide 24 mEq/L (23-29); Chloride 105 mEq/L (98-107); Glucose 133 mg/dL (70-105); Magnesium 2.2 mg/dL (1.6-2.6); Osmolality,Calculated 291 (280-300); Phosphorous 4.2 mg/dL (2.7-4.5); Potassium 4.1 mEq/L (3.5-5.1); Sodium 138 mEq/L (136-145); eGFR For Non-African Americans > 60 (> 60)
[2018-07-01 06:52] VITALS: BP 122/60
--- NOTE | 2018-07-01 08:52 | Neurology Progress Note ---
<Goldy Gomez J - Last Filed: 07/01/18 10:17> Date of Encounter: 07/01/18 Time of Encounter: 08:50 Assessment and Plan (1) Hypertensive urgency Status: Acute (2) Paresthesias Status: Acute neuro consulted for evaluation of left-sided paresthesias. Patient with HTN urgency on arrival SBP 190s. CVA ruled out. MRI brain negative for acute abnormality. Echocardiogram grossly normal. Carotid duplex with moderate bilateral carotid artery stenosis. At this time we do not suspect TIA. S/sx are multifactorial with hypertensive urgency and anxiety. Exam findings today are nonfocal and nonlateralizing. She is back to baseline status. Psychiatry has seen for evaluation of SI. Recommendations to start Geodon; defer to primary team. Strongly suggest risk factor modification, lifestyle modification, anti-HTN medication compliance and monitoring as well as tight glycemic control Continue with Platelet therapy and statin at discharge. she is okay to DC from neurology's perspective. we will sign off at this time. Please reconsult should any further need arise Subjective Principal diagnosis: Left orofacial and left arm paresthesias Interval history: patient seen and examined at bedside today. No acute change in condition overnight. Her symptoms have resolved and not returned since admission. Discussed negative workup findings including negative MRI of brain, normal echocardiogram and moderate stenosis on carotid duplex scans. Today, she repo rts that her anxiety appears to have improved and reports a good night sleep. She does report that she feels much better today. Objective - Constitutional Vitals: Temp Pulse Resp BP Pulse Ox 98.2 F 59 18 122/60 98 07/01/18 06:48 07/01/18 06:48 07/01/18 06:48 07/01/18 06:48 07/01/18 06:48 Exam: Examination: General Examination: *CONSTITUTIONAL: Alert and oriented x3, no acute distress *GENERAL APPEARANCE OF PATIENT appears healthy and well groomed. Miehsa nues to appear anxious *EYES: pupils equal, round, reactive to light and accommodation, conju nctiva clear *CARDIOVASCULAR RRR, no peripheral edema, distal temperature normal, 2+ radial and dorsalis pedis pulses. See vital signs Musculoskeletal: *GAIT AND STATION normal, with normal Romberg testing, no abnormalities such as broad base gait or spasticity *ASSESSMENT OF MUSCLE STRENGTH IN THE UPPER AND LOWER EXTREMITIES bilateral deltoid, bicep, tricep, product strategy director strength, hip flexors ,anterior tibialis, dorsoflexion of the foot 5/5 *MUSCLE TONE IN THE UPPER AND LOWER EXTREMITIES normal. No abnormal movements, fasciculations or atrophy identified. Neurological: *ORIENTATION to person, situation, time and place *RECURRENT AND REMOTE MEMORY intact *ATTENTION AND CONCENTRATION are normal *LANGUAGE FUNCTION no significant aphasia or dysarthia was noted. *FUND OF KNOWLEDGE aware of current events, past history, vocabulary *MENTAL attention span and concentration normal. *CN II optic fundi were normal, no papilledema noted. *CN III,IV, PERRLA extraocular eye movements were full, no nystagmus and no ptosis noted. *CN V shows normal sensation and jaw opens symmetrically. *CN VII shows normal facial movement symmetrically, upper and lower bilaterally. *CN VIII shows no significant hearing loss on exam *CN IX,,X palate elevated symmetrically *CN XI normal strength in the sternocleidomastoid muscles, symmetrical shoulder shrugging. *CN XII tongue protruded in the midline, with normal strength and movement. *SENSORY EXAMINATION light touch intact *REFLEXES: deep tendon reflexes were normal and symmetrical , grade 3/4 diffusely, no pathological reflexes were noted. *CEREBELLAR TESTING normal finger to nose, heel/knee/johnson *PAIN LEVEL 0 Results - Laboratory Findings CBC and BMP: 07/01/18 01:24 07/01/18 01:24 Abnormal lab findings: Abnormal lab results Plt Count 105 K/mcL (140-400) L 07/01/18 01:24 BUN/Creatinine Ratio 29 (6-26) H 07/01/18 01:24 Glucose 133 mg/dL (70-105) H 07/01/18 01:24 POC Glucose 112 mg/dL (70-99) H 07/01/18 06:51 Consult Discharge Plan - Plan Instructions: Lisinopril (By mouth), Aspirin (By mouth), Sleep Apnea Syndrome (DC), Diabetes Mellitus Type 2 in Adults (DC), Hypertensive Crisis (DC) Additional Instructions: 1. Please follow up with your primary care physician and psychiatrist within one week after your discharge from the hospital. 2. Aspirin 81mg once a day has been added to your home medications 3. Please closely monitor your blood pressure at home once daily. Keep a log of your BP readings at home and take this log with you to your follow up with your PCP. Lisinopril 5mg once a day has been added to your home medications for BP control. Hold this medication for systolic blood pressure less than 100. 4. Please ask your psychiatrist about adjustment of your antipsychotic medications 5. Please resume all your other home medications as prescribed by your primary care physician. Referrals: Isrrael Peralta MD [Primary Care Provider] - Prescriptions: Aspirin [Lo-Dose Aspirin EC] 81 mg PO DAILY #30 tablet. Lisinopril 5 mg PO DAILY #30 tablet <Miguel Enrique - Last Filed: 07/01/18 14:26> Date of Encounter: 07/01/18 Assessment and Plan (1) Hypertensive urgency Status: Resolved (2) Paresthesias Status: Resolved I have personally performed a [id number] assessment of the patient and have reviewed the PA/CANDY PACKER note. My impressions are as follows: I suspect that this patient may very well have experienced a transient ischemic attack she did have primarily left-sided paresthesias. And her blood pressure was significantly elevated as stated above. I would recommend ongoing follow-up with her primary care provider for him and blood pressure checks and ongoing management of her stroke risk factors.. I agree with the assessment and plan as stated above. Ongoing management and treatment of her mental health issues will also be paramount. I will reevaluate this patient at your request. Subjective Interval history: The chart was reviewed, the patient was seen and examined independently. I [id number] examination was performed by myself. I agree with the assessment of the CMP as stated above. Patient appears to be much more relaxed today. She has no complaints. However remaining symptoms have resolved. I did review the MRI scan of the brain which was negative, echocardiogram was normal and carotid duplex Doppler studies reveal a moderate stenosis of the internal carotid a rteries. Objective - Constitutional Vitals: Temp Pulse Resp BP Pulse Ox 98.2 F 59 18 122/60 98 07/01/18 06:48 07/01/18 06:48 07/01/18 06:48 07/01/18 06:48 07/01/18 06:48 Exam: I did complete a [id number] full neurologic examination I agree with the examination of the AUTO POLISHER as documented above. Results - Laboratory Findings CBC and BMP: 07/01/18 01:24 07/01/18 01:24 Abnormal lab findings: Abnormal lab results Plt Count 105 K/mcL (140-400) L 07/01/18 01:24 BUN/Creatinine Ratio 29 (6-26) H 07/01/18 01:24 Glucose 133 mg/dL (70-105) H 07/01/18 01:24 POC Glucose 112 mg/dL (70-99) H 07/01/18 06:51
[2018-07-01] MEDS: Insulin LISPRO 300 UNITS/3 ML VIAL SQ SCH ×2 (09:25→12:02)
[2018-07-01] MEDS: Aspirin 81 MG TAB.CHEW PO SCH (09:31)
[2018-07-01] MEDS: FAMCICLOVIR 250 MG PO SCH (09:32)
[2018-07-01] MEDS: Acetaminophen/Butalbital/CaffeineTABLET PO PRN (09:55)
[2018-07-01] MEDS: *HR* LORazepam 1 MG TABLET PO PRN (09:55)
--- NOTE | 2018-07-01 11:30 | Discharge Summary ---
- NOTES TO OUTPATIENT PROVIDER Notes to Outpatient Provider: Please closley monitor pt's BP, she was admitted for hypertensive urgency which resolved after initial IV antihypertensive treatment. Pt is being discharged with lisinopril 5mg once a day. Please evaluate the patient for hypertension. Psychiatry: Please re-evaluate patient 's home medications Date of Encounter: 07/01/18 Time of Encounter: 10:22 - Discharge Diagnosis (1) Hypertensive urgency Priority: Primary Status: Resolved (2) Left facial numbness Priority: Primary Status: Resolved (3) Paresthesias Priority: Primary Status: Resolved (4) Suicidal ideation Priority: Secondary Status: Resolved Hospital course: Ms. Wilson is a 63 year old female with PMH of DM, anxiety, HLD, HTN who was admitted for hypertensive urgency, left facial numbness, and suicidal ideation. Pt's hypertensive urgency resolved after administration of Labetalol IV in the ER. Her BP remained within acceptable range throughout the course of her hospitalization. Pt did report of abruptly stopping her antihypertensive medication therapy due to being on supplemental therapy. Pt was counseled in regards to being compliant with her prescribed medical therapy. She was also evaluated by neurology. CVA workup was negative and pt had complete resolution of her presenting symptoms. She was also evaluated by psychiatry and outpatient follow up was recommending and pt was deemed clear for discharge from psychiatry point of view. At this time pt is back to her baseline clinical status. Reports resolution of her presenting symptoms, BP within acceptable range, and denies any suicidal ideations. She is seen and examined on the day of discharge with family present at bedside. Pt is medically stable for discharge to home with outpatient follow up with PCP and psychiatry. Pt demonstrates understanding of her diagnosis and agrees with the discharge care and plan. All questions were answered. - Time Spent with Patient Total time spent providing and/or coordinating discharge services: Time spent: Greater than 30 minutes - Discharge Medications Prescriptions: Bao Aspirin [Lo-Dose Aspirin EC] 81 mg PO DAILY #30 tablet. Lisinopril 5 mg PO DAILY #30 tablet Continue Famciclovir 250 mg PO TID FLUoxetine HCl [Prozac] 20 mg PO HS LORazepam [Lorazepam] 2 mg PO BID PRN PRN Reason: Anxiety Metformin HCl [Glucophage Xr] 500 mg PO QPM Rosuvastatin Calcium [Crestor] 5 mg PO SUTH Home Medications: FLUoxetine HCl [Prozac] 20 mg PO HS 06/29/18 [History] Famciclovir 250 mg PO TID 06/29/18 [History] LORazepam [Lorazepam] 2 mg PO BID PRN 06/29/18 [History] Metformin HCl [Glucophage Xr] 500 mg PO QPM 06/29/18 [History] Rosuvastatin Calcium [Crestor] 5 mg PO SUTH 06/29/18 [History] Aspirin [Lo-Dose Aspirin EC] 81 mg PO DAILY #30 tablet. 07/01/18 [Rx] Lisinopril 5 mg PO DAILY #30 tablet 07/01/18 [Rx] Allergies/Adverse Reactions: Allergy/AdvReac Type Severity Reaction Status Date / Time lamotrigine [From Lamictal] Allergy Rash Verified 06/29/18 23:50 morphine Allergy Nausea Verified 03/26/16 10:08 oxcarbazepine Allergy Seizure Verified 06/29/18 23:50 [From Trileptal] Penicillins Allergy Rash Verified 03/26/16 10:08 ciprofloxacin [From Cipro] AdvReac Depression Verified 03/26/16 10:08 epinephrine AdvReac See Verified 03/26/16 10:08 Comments Date of admission: 06/29/18 20:35 Primary care physician: Isrrael Peralta MD Consults: 06/30/18 08:38 Consult to Neurology [CONS] Routine Consulting Provider: [facility] Reason for Consult: TIA Call Completed: No Consult to Psychiatry [CONS] Routine Consulting Provider: Psychiatry [facility] Reason consult: Other Other reason and/or additional details: suicial ideation Call Completed: No 06/30/18 12:29 Consult to Physical Therapy [CONS] Routine Comment: Evaluate, develop and implement POC Reason for Consult: TIA Does patient have active BEDREST order?: No Is patient medically & hemodynamically stable?: Yes Patient assessed for mobility or mobilized this visit?: Yes Discharging clinician: Radha Rutherford Anticipated date of discharge: 07/01/18 - Constitutional Vitals: Temp Pulse Resp BP Pulse Ox 98.2 F 59 18 122/60 98 07/01/18 06:48 07/01/18 06:48 07/01/18 06:48 07/01/18 06:48 07/01/18 06:48 General appearance: Present: cooperative, A&O X 3, pleasant, no acute distress, answers questions appropriately Exam: General: No acute distress, AAO x 3, obese HEENT: EOMI, NC/AT, no scleral icterus Respiratory: Clear to auscultate bilaterally, no wheezing, no rales Cardiovascular: Regular, Rate, Rhythm, No murmurs GI: Soft, Non tender, non distended, normal bowel sounds Ext: No edema, no tenderness, positive pulses Neuro: AAO x 3, no focal deficits - Patient Status Disposition: Home, Self-Care Condition: Good Functional capacity at discharge: independent ambulation Overall status at discharge: patient is back to baseline - Discharge Instructions Instructions: Sleep Apnea Syndrome (DC), Diabetes Mellitus Type 2 in Adults (DC), Hypertensive Crisis (DC) Follow Up With: Isrrael Peralta MD [Primary Care Provider] - Additional Instructions: 1. Please follow up with your primary care physician and psychiatrist within one week after your discharge from the hospital. 2. Aspirin 81mg once a day has been added to your home medications 3. Please closely monitor your blood pressure at home once daily. Keep a log of your BP readings at home and take this log with you to your follow up with your PCP. Lisinopril 5mg once a day has been added to your home medications for BP control. Hold this medication for systolic blood pressure less than 100. 4. Please ask your psychiatrist about adjustment of your antipsychotic medications 5. Please resume all your other home medications as prescribed by your primary care physician. - Diet and Activity Activity: resume usual activities as tolerated Diet: diabetic diet, low fat, low cholesterol, low salt diet
--- NOTE | 2018-07-01 17:48 | Electrocardiograph Report ---
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
== END 2018-07-01 13:58 | disposition home or self-care (01) ==
LOC: 2NENU 17:47 → EMEROOARM 17:47 → 2NENU 22:05
PROVIDERS: ADMIT Pediatrics; ATTEND Pediatrics